=== PATIENT | male | born 1975 | race Hispanic/Latino ===

== ENCOUNTER 2021-09-17 19:26 | Emergency (ER) | payer MEDICAID ==
[~2021-09-17] VITALS: Ht 162.6 cm; Wt 68.0 kg
[2021-09-17 19:27] VITALS: BP 135/89
== END 2021-09-17 20:44 | disposition home or self-care (01) ==
LOC: EDH 19:26
DX: F10.129 Alcohol abuse with intoxication, unspecified (principal); R11.10 Vomiting, unspecified

== ENCOUNTER 2022-01-19 10:11 | Emergency (ER) | payer MEDICAID ==
[~2022-01-19] VITALS: Ht 165.1 cm; Wt 65.8 kg
[2022-01-19 11:23] VITALS: BP 135/87
== END 2022-01-19 11:20 | disposition home or self-care, planned readmission (81) ==
LOC: EDH 10:11
DX: S50.01XA Contusion of right elbow, initial encounter (principal); H61.23 Impacted cerumen, bilateral; W19.XXXA Unspecified fall, initial encounter; Y93.89 Activity, other specified; Y92.89 Other specified places as the place of occurrence of the external cause; Y99.8 Other external cause status

== ENCOUNTER 2022-11-04 10:44 | Emergency (ER) | payer MEDICAID ==
[~2022-11-04] VITALS: Ht 157.5 cm; Wt 63.5 kg
[2022-11-04 11:07] LABS: BASOPHILS % (AUTO) 0.9 % (0.0-5.0); EOSINOPHILS % (AUTO) 0.9 % (0.0-8.0); HEMATOCRIT 41.4 % (42-54); LYMPHOCYTES % (AUTO) 8.5 % (21.0-51.0); MEAN CORPUSCULAR HEMOGLOBIN 31.9 pg (27.0-33.0); MEAN CORPUSCULAR HGB CONC 34.1 g/dL (32.0-36.0); MEAN CORPUSCULAR VOLUME 93.7 fL (79-99); MONOCYTES % (AUTO) 14.2 % (3.0-13.0); NEUTROPHILS % (AUTO) 75.2 % (40.0-77.0); PLATELET COUNT (AUTO) 267 K/uL (130-400); RED BLOOD CELL COUNT(AUTO) 4.42 MIL/uL (4.50-6.20); RED CELL DISTRIBUTION WIDTH 12.4 % (11.0-15.5)
[2022-11-04 11:15] LABS: CARBON DIOXIDE 33 mmol/L (21-32); CHLORIDE 92 mmol/L (101-111); GLOMERULAR FILTR. RATE CALC 86 mL/min (>60); GLUCOSE,RANDOM 102 mg/dL (70-105); POTASSIUM 3.7 mmol/L (3.5-5.1); SODIUM SERUM 131 mmol/L (136-145); UREA NITROGEN, BLOOD 16 mg/dL (7-18)
[2022-11-04 11:19] LABS: ALANINE AMINOTRANSFERASE 146 U/L (12-78); ALBUMIN 4.3 g/dL (3.5-5.0); ALCOHOL, BLOOD < 3 mg/dL (0-10); ASPARTATE AMINOTRANSFERASE 144 U/L (10-37); TOTAL PROTEIN, SERUM 8.9 g/dL (6.0-8.3)
[2022-11-04] MEDS ORDERED: M.V.I. IV [ADULT] 10 ML, FOLIC ACID 1 MG, THIAMINE HCL 100 MG in 0.9%NACL 1000ML 1,000 ML IV SCH (12:29)
[2022-11-04] MEDS ORDERED: 0.9%NACL 1000ML 2,000 ML IV ONE (12:30)
[2022-11-04] MEDS ORDERED: LORAZEPAM 2 MG/ML 1 ML VIAL IVP ONE ×2 (12:30→14:00)
[2022-11-04 13:14] LABS: APPEARANCE,URINE CLEAR (CLEAR); BILIRUBIN,URINE NEGATIVE (NEGATIVE); COLOR,URINE YELLOW (YELLOW); GLUCOSE, URINE (UA) NEGATIVE (NEGATIVE); KETONES,URINE 20 mg/dL (NEGATIVE); LEUKOCYTE ESTERASE ,URINE NEGATIVE Leu/uL (NEGATIVE); NITRATE,URINE NEGATIVE (NEGATIVE); PROTEIN,URINE 50 mg/dL (NEGATIVE)
[2022-11-04 13:22] LABS: AMPHET/METH SCREEN,URINE NEGATIVE (NEGATIVE); BARBITURATE SCREEN, URINE NEGATIVE (NEGATIVE); BENZODIAZEPINES SCREEN,URINE NEGATIVE (NEGATIVE); CANNABINOID SCREEN,URINE NEGATIVE (NEGATIVE); COCAINE SCREEN,URINE NEGATIVE (NEGATIVE); OPIATE SCREEN,URINE NEGATIVE (NEGATIVE); PHENCYCLIDINE SCREEN,URINE NEGATIVE (NEGATIVE)
[2022-11-04 13:58] LABS: BACTERIA,URINE RARE /HPF (None Seen); MUCUS,URINE RARE LPF (None Seen); SQUAMOUS EPITHELIAL CELL,UR RARE /HPF (0-2); WBC,URINE 0-1 /HPF (0-1)
[2022-11-04 14:49] VITALS: BP 155/82
== END 2022-11-04 14:48 | disposition home or self-care (01) ==
LOC: EDH 10:44
DX: F10.239 Alcohol dependence with withdrawal, unspecified (principal); Z88.0 Allergy status to penicillin
CPT/HCPCS: 99284; 96374; 96361; 96375; 82550; 83735; 80053; 80305; 85025; 83605; 36415; 96376; 93005; 81001; J2060 ×2; J3411; J3490; J7030